=== PATIENT | male | born 1990 | race Hispanic/Latino ===

== ENCOUNTER 2020-05-07 17:49 | Emergency (ER) | payer SELFPAY ==
[2020-05-07] MEDS ORDERED: LORAZEPAM 2 MG/ML 1 ML VIAL ONE (18:11)
[2020-05-07 18:25] LABS: BASOPHILS % (AUTO) 0.9 % (0.0-5.0); EOSINOPHILS % (AUTO) 1.2 % (0.0-8.0); HEMATOCRIT 44.3 % (42-54); LYMPHOCYTES % (AUTO) 33.3 % (21.0-51.0); MEAN CORPUSCULAR HEMOGLOBIN 30.9 pg (27.0-33.0); MEAN CORPUSCULAR HGB CONC 35.4 g/dL (32.0-36.0); MEAN CORPUSCULAR VOLUME 87.2 fL (79-99); MONOCYTES % (AUTO) 9.6 % (3.0-13.0); NEUTROPHILS % (AUTO) 54.7 % (40.0-77.0); PLATELET COUNT (AUTO) 300 K/uL (130-400); RED BLOOD CELL COUNT(AUTO) 5.08 MIL/uL (4.50-6.20); RED CELL DISTRIBUTION WIDTH 12.9 % (11.0-15.5); WHITE BLOOD COUNT (AUTO) 11.3 K/uL (4.8-10.8)
[2020-05-07 18:35] LABS: AMPHET/METH SCREEN,URINE NEGATIVE (NEGATIVE); BARBITURATE SCREEN, URINE NEGATIVE (NEGATIVE); BENZODIAZEPINES SCREEN,URINE NEGATIVE (NEGATIVE); CANNABINOID SCREEN,URINE POSITIVE (NEGATIVE); COCAINE SCREEN,URINE POSITIVE (NEGATIVE); OPIATE SCREEN,URINE NEGATIVE (NEGATIVE); PHENCYCLIDINE SCREEN,URINE NEGATIVE (NEGATIVE)
[2020-05-07 18:40] LABS: CREATININE 1.4 mg/dL (0.5-1.5); POTASSIUM 3.3 mmol/L (3.5-5.1)
[2020-05-07 18:53] LABS: ALBUMIN 4.4 g/dL (3.5-5.0); BILIRUBIN,TOTAL 0.4 mg/dL (0.2-1.0); TOTAL PROTEIN, SERUM 8.5 g/dL (6.0-8.3)
== END 2020-05-07 21:47 | disposition home or self-care (01) ==
LOC: EDH 17:49
DX: F41.1 Generalized anxiety disorder (principal); F14.10 Cocaine abuse, uncomplicated; Z72.0 Tobacco use
CPT/HCPCS: 36415; 71045; 80053; 80305; 82550 ×2; 83690; 84484 ×2; 85025; 85378; 93005; 96374; 99285; J2060

== ENCOUNTER 2020-05-18 14:44 | Emergency (ER) | payer SELFPAY ==
[2020-05-18 15:04] LABS: BASOPHILS % (AUTO) 0.5 % (0.0-5.0); EOSINOPHILS % (AUTO) 1.2 % (0.0-8.0); HEMATOCRIT 45.4 % (42-54); LYMPHOCYTES % (AUTO) 27.8 % (21.0-51.0); MEAN CORPUSCULAR HEMOGLOBIN 30.6 pg (27.0-33.0); MEAN CORPUSCULAR HGB CONC 34.8 g/dL (32.0-36.0); MONOCYTES % (AUTO) 8.2 % (3.0-13.0); PLATELET COUNT (AUTO) 332 K/uL (130-400); RED BLOOD CELL COUNT(AUTO) 5.16 MIL/uL (4.50-6.20); RED CELL DISTRIBUTION WIDTH 12.9 % (11.0-15.5); WHITE BLOOD COUNT (AUTO) 11.2 K/uL (4.8-10.8)
[2020-05-18 15:08] LABS: APPEARANCE,URINE Clear (CLEAR); BILIRUBIN,URINE Negative (NEGATIVE); COLOR,URINE Yellow (YELLOW); GLUCOSE, URINE (UA) Negative (NEGATIVE); KETONES,URINE Negative (NEGATIVE); LEUKOCYTE ESTERASE ,URINE Negative (NEGATIVE); NITRATE,URINE Negative (NEGATIVE); OCCULT BLOOD,URINE Negative (NEGATIVE); PROTEIN,URINE Negative (NEGATIVE); UROBILINOGEN,URINE 0.2 mg/dL (0.2-1.0)
[2020-05-18 15:14] LABS: POTASSIUM 3.8 mmol/L (3.5-5.1)
[2020-05-18 15:16] LABS: AMPHET/METH SCREEN,URINE NEGATIVE (NEGATIVE); BARBITURATE SCREEN, URINE NEGATIVE (NEGATIVE); BENZODIAZEPINES SCREEN,URINE NEGATIVE (NEGATIVE); CANNABINOID SCREEN,URINE POSITIVE (NEGATIVE); COCAINE SCREEN,URINE NEGATIVE (NEGATIVE); OPIATE SCREEN,URINE NEGATIVE (NEGATIVE); PHENCYCLIDINE SCREEN,URINE NEGATIVE (NEGATIVE)
[2020-05-18 15:19] LABS: ALBUMIN 4.5 g/dL (3.5-5.0); BILIRUBIN,TOTAL 0.3 mg/dL (0.2-1.0); TOTAL PROTEIN, SERUM 8.6 g/dL (6.0-8.3)
[2020-05-18] MEDS ORDERED: ACETAMINOPHEN EXTRA STRENGTH 500 MG TABLET ONE (16:55)
== END 2020-05-18 17:29 | disposition home or self-care (01) ==
LOC: EDH 14:44
DX: R07.89 Other chest pain (principal); K82.4 Cholesterolosis of gallbladder
CPT/HCPCS: 36415; 76705; 80053; 80305; 81003; 82550; 84484; 85025; 93005

== ENCOUNTER 2021-06-18 06:42 | Emergency (ER) | payer OTHER ==
[~2021-06-18] VITALS: Ht 165.1 cm; Wt 87.1 kg
[2021-06-18 06:46] VITALS: BP 138/94
[2021-06-18] MEDS ORDERED: LACTATED RINGERS 1000ML 1,000 ML IV SCH (08:30)
== END 2021-06-18 09:22 | disposition left against medical advice (07) ==
LOC: EDH 06:42
DX: F14.10 Cocaine abuse, uncomplicated (principal); Z53.21 Procedure and treatment not carried out due to patient leaving prior to being seen by health care provider
CPT/HCPCS: 93005

== ENCOUNTER 2021-12-28 18:27 | Emergency (ER) | payer OTHER ==
[2021-12-28] MEDS ORDERED: CEFAZOLIN SODIUM 1 GM VIAL ONE (18:31)
[2021-12-28] MEDS ORDERED: 0.9%NACL 1000ML 1,000 ML IV ONE (18:32)
[2021-12-28] MEDS ORDERED: TETANUS/DIPHTHERIA TOXOID [ADULT] 0.5 ML VIAL IM ONE (18:32)
[2021-12-28] MEDS ORDERED: 0.9%NACL 100ML 100 ML ONE (18:33)
[2021-12-28] MEDS ORDERED: LIDOCAINE HCL 400MG/20ML VIAL ONE (18:55)
[2021-12-28 20:30] VITALS: BP 126/70
[2021-12-28] MEDS ORDERED: CEPH500B PO (20:51)
== END 2021-12-28 21:07 | disposition home or self-care (01) ==
LOC: EDH 18:27
DX: S81.812A Laceration without foreign body, left lower leg, initial encounter (principal); W26.8XXA Contact with other sharp object(s), not elsewhere classified, initial encounter; Y93.89 Activity, other specified; Y92.89 Other specified places as the place of occurrence of the external cause; Y99.8 Other external cause status
CPT/HCPCS: 12002; 90471; 90714; 96361; 96374; 99285; J0690; J3490; J7030